=== PATIENT | female | born 1985 | race African-American/Black ===

== ENCOUNTER 2018-04-21 15:41 | Observation (INO) | payer MEDICAID, OTHER ==
[2018-04-21 16:22] VITALS: BMI 45.5
--- NOTE | 2018-04-21 16:29 | PDOC.LDHP ---
Labor and Delivery H&P Chief complaint: other (uncontrolled GDM) HPI: Ms. Marie is a 32YO @ 35.1 weeks with uncontrolled GDM who was sent over from clinic due to 2 consecutive elevated blood glucose readings. Patient states that her first blood glucose level was in the 200s and that her second check was ~154. Patient states that she does no check her BG regularly at home and that last time she did check it was about 2 weeks ago. She says she stopped checking them because they were consistently normal when they were checked at clinic. She does state that she is compliant with her home dose of metformin but does not like that it gives her diarrhea. Patient also states that her was elevated in clinic with a SBP of ~141. She says she has never had a high BP reading until today. Does endorse a RAYGOZA around her right eye and forehead that has been coming and going and is not relieved by tylenol. She denies any vision changes, SOB other that baseline with , chest pain, upper abdominal pain or swelling. Due date: 05/30/18 Dating criteria: second trimester ultrasound (consistent with 29.6 wk U/S) Grav: 4 Para: 3 ([id number]) Current complications: gestational diabetes Abnormal US findings: No Past Medical History: 1. Obesity 2. iron deficiency anemia Current medications: pre- vitamins Previous surgical history: low tranverse CS (c/s x 2 --> in 2004 & 2017), appendectomy Social history: none - Physical Exam General: NAD Heart: RRR Lungs: nonlabored breathing Abdomen: NTTP Extremeties: no edema - OB Labs Blood type: O RH: positive Antibody Screen: negative HIV: negative RPR: negative HEPSAg: negative GBS: unknown Urine drug screen: not done Rubella: immune Additional Labs: HgbA1c - 5.6 2 hour GTT: fasting --> 83 1/2 hour --> 160 1 hour --> 183 2 hours --> 97 - Assessment Patient is a 32YO w/ SIUP @ 35.1 weeks who was sent over from clinic due to highly elevated blood glucose levels and an elevated SBP. - Plan Plan: admit to L&D, observation in L&D -: 1. SIUP @ 35.1 wks complicated by A2GDM: - Will start on insulin regimen as monotherapy has not been sufficient for adequate control - Will monitor overnight to ensure BG levels are controlled - Will get a BPP, NST & growth U/S to evaluate status 2. Elevated BP w/o dx of HTN: - Will continue to monitor BP. 3. h/o tobacco use during - Will encourage cessation. <Yudith Salas - Last Filed: 04/21/18 16:42> <Shalini Manley - Last Filed: 04/21/18 18:34> Allergies/Adverse Reactions: Allergies Allergy/AdvReac Type Severity Reaction Status Date / Time No Known Allergies Allergy Verified 01/09/17 02:45 Attending Addendum - Attending Addendum Date/Time: 04/21/18 1822 I personally evaluated the patient and discussed the management with Dr. Salas I agree with the History, Examination, Assessment and Plan documented above with any addition or exceptions noted below- 32 year old @ 35.1 weeks with h/o A2GDM on metformin sent from clinic due to elevated BG and poor follow- up. Patient denies any complaints. (+) FM. States that she has not checked her BG in about 2 weeks but when she would check it her fastings were less than 95 but her post lunch and dinner glucoses were between 150 and 200. Has h/o GDM in her second treated with oral medications. Afebrile VSS. Exam repeated by me and agree with resident's findings. NST reactive. Accucheck=99; BPP 05/17. USG c/w dates; EFW 2596 g (46%). A/P: 1) IUP@ 35.1 weeks with A2GDM- will admit to and monitro BG; check pre and 2 hour post-prandial glucoses. Continue metformin and add insulin as required based on BG. Reassuring testing. <Shalini Manley - Last Filed: 04/21/18 18:34>
[2018-04-21] MEDS ORDERED: Ondansetron HCl/PF 4 MG/2 ML Vial IVP PRN (16:47)
[2018-04-21] MEDS ORDERED: Promethazine HCl 25 MG/ML VIAL IM PRN (16:47)
[2018-04-21] MEDS ORDERED: Docusate 100 MG CAP PO PRN (16:47)
--- NOTE | 2018-04-21 18:40 | ULT ---
OB ULTRASOUND AND BIOPHYSICAL PROFILE: 04/21/18 HISTORY: Maternal gestational diabetes. Multiple longitudinal and transverse images of an intrauterine is obtained using a multiher tz curvilinear transducer. Real time, color flow and M-mode sonography is used to evaluate the fetus. Images demonstrate the fetus to be in cephalic presentation. The placenta is anterior. Amniotic fluid index measures 10.3 cm. BIOMETRICS: Biparietal diameter = 86 mm = 34 weeks, 4 days Head circumference = 313 mm = 35 weeks, 1 day Abdominal circumference = 312 mm = 35 weeks, 1 day Femur length = 69 mm = 35 weeks, 2 days Composite age = 35 weeks, 6 days with an estimated deliver of 05/27/18. Estimated weight i s 2596 grams plus/minus 384 grams. Cardiac activity measures 149 beats per minute. BIOPHYSICAL PROFILE: tone = 2 breathing = 2 movement = 2 Amniotic fluid volume = 2 Composite equals 8 out of 8. IMPRESSION: Viable intrauterine and biophysical profile measuring 8 out of 8. POS: [facility]
[2018-04-21] MEDS ORDERED: Ondansetron ODT 4 MG TAB PO PRN (20:25)
[2018-04-21] MEDS ORDERED: HumaLOG 300 UNITS/3 ML VIAL SC PRN ×2 (20:25)
[2018-04-21] MEDS ORDERED: Dextrose 5% in Water 1,000 ML IV PRN (20:25)
[2018-04-21] MEDS ORDERED: Dextrose 50% Abboject 50 ML SYRINGE SLOW IVP PRN (20:25)
--- NOTE | 2018-04-22 08:17 | PDOC.FM ---
- Subjective Subjective: 32yo at 35.2 weeks with history of uncontrolled A2GDM. Has continued mild headache. Reports her diet in the hospital has been much healthier compared to her diet at home. Reports mostly eating fried chicken at home. ROS: no fevers or chills, no cp or palpitations, no sob or cough, polyuria, no dysuria - Objective MAR Reviewed: Yes Vital Signs & Weight: Weight Weight 109.316 kg Additional Labs: POC Glucose: 88 @ 0629 today <Christian Murray - Last Filed: 04/22/18 08:45> - Objective Vital Signs & Weight: Weight Weight 109.316 kg <Shalini Manley - Last Filed: 04/22/18 11:12> Phys Exam - Physical Examination Constitutional: NAD HEENT: moist MMs, sclera anicteric Respiratory: no wheezing, clear to auscultation bilateral Cardiovascular: RRR, no significant murmur Gastrointestinal: soft, non-tender Musculoskeletal: no edema Psychiatric: normal affect Skin: no rash, cap refill <2 seconds <Christian Murray - Last Filed: 04/22/18 08:45> Dx/Plan (1) GDM, class A2 Code(s): O24.414 - GESTATIONAL DIABETES IN , INSULIN CONTROLLED Status: Acute (2) Status: Acute - Plan Plan: SIUP @ 35.2 wks complicated by A2GDM: - blood sugars remain low despite holding metformin, pt has not needed insulin yet. Likely high BS was due to dietary choices at home. BPP was 8/8, weigh 2596g +/- 384. - will discharge with home metformin and dietary counseling. Elevated BP w/o dx of HTN: - Will continue to monitor BP. h/o tobacco use during - Will encourage cessation. <Christian Murray - Last Filed: 04/22/18 08:45> Attending Addendum - Attending Addendum Date/Time: 04/22/18 1102 I personally evaluated the patient and discussed the management with Dr. Murray I agree with the History, Examination, Assessment and Plan documented above with any addition or exceptions noted below- Patient without complaints. (+) FM. Afebrile VSS. A/P: 1) IUP@ 35.2 weeks with A2GDM- BG all within normal limits. Patient acknowledges that her diet has not been similar to current diet here at hospital. Will have insurance manager see patient. If BG remain stable, will consider d/c later today. Continue metformin for now. <Shalini Manley - Last Filed: 04/22/18 11:12>
[2018-04-22] MEDS: Acetaminophen 500 MG TAB PO PRN ×2 (09:03→21:39)
[2018-04-22] MEDS: metFORMIN 500 MG TAB PO SCH ×2 (09:03→19:27)
[2018-04-22] MEDS: Prenatal Vitamin 1 TAB PO SCH (09:03)
[2018-04-22] MEDS: Ferrous Sulfate 325 MG TAB PO SCH (09:04)
--- NOTE | 2018-04-23 07:14 | PDOC.FM ---
- Subjective Subjective: No complaints on exam this AM. Patient is ready for discharge. Denies any chest pain, SOB or upper abdominal pain. No nausea or vomiting. Tolerating food and liquids well PO. - Objective MAR Reviewed: Yes Vital Signs & Weight: Vital Signs (12 hours) Temp Pulse Resp BP BP Pulse Ox 04/22/18 21:30 98.6 F 76 28 H 108/56 L 108/54 L 99 Weight Weight 109.316 kg I&O: 04/22/18 04/23/18 04/24/18 06:59 06:59 06:59 Intake Total 750 Balance 750 <SalasYudith - Last Filed: 04/23/18 12:02> - Objective Vital Signs & Weight: Vital Signs (12 hours) Temp Pulse Resp BP 04/23/18 09:45 116/57 L 04/23/18 08:00 98.3 F 81 24 H Weight Weight 109.316 kg I&O: 04/22/18 04/23/18 04/24/18 06:59 06:59 06:59 Intake Total 750 Balance 750 <Shalini Manley - Last Filed: 04/23/18 19:32> Phys Exam - Physical Examination HEENT: PERRLA Respiratory: no wheezing, no rales, no rhonchi, clear to auscultation bilateral Cardiovascular: RRR, no significant murmur Gastrointestinal: soft, non-tender, no distention, positive bowel sounds Musculoskeletal: no edema Neurological: moves all 4 limbs Psychiatric: normal affect, A&O x 3 Skin: no rash <JosueYudith - Last Filed: 04/23/18 12:02> Dx/Plan (1) Status: Acute QualifierTitle: Weeks of gestation: 35 weeks Qualified Code(s): Z3A.35 - 35 weeks gestation of (2) GDM, class A2 Code(s): O24.414 - GESTATIONAL DIABETES IN , INSULIN CONTROLLED Status: Acute - Plan Plan: A&P: Assessment: 22YO @ 35.2 weeks w/ poorly controlled A2GDM. Plan: 1. SIUP complicated by poorly controlled A2GDM: - Almost all BG levels have been WNL since admission. - Glucose monitor checked by nurses and is working well so she will be able to use it at home. - Encouraged following a better diet, the importance of making all scheduled appointments, and checking blood glucose at home. Dietitian also counselled patient extensively yesterday regarding what diet to follow upon leaving the hospital. - Will continue on Metformin 1000mg BID following discharge. - Has a f/u appt scheduled wih Dr. Toscano at [facility] tomorrow on 04/24. 2. h/o tobacco use in - Will encourage cessation <Yudith Salas - Last Filed: 04/23/18 12:02> Attending Addendum - Attending Addendum Date/Time: 04/23/181928 I personally evaluated the patient and discussed the management with Dr. Salas I agree with the History, Examination, Assessment and Plan documented above with any addition or exceptions noted below- Patient without complaints. Afebrile VSS A/P: 1) IUP @35.3 weeks with A2GDM- BG within normal limits here in the hospital. Patients glucometer checked and appears accurate. Seen by cheese wrapper yesterday and oatient acknowledges that food choices at home have not been appropriate for GDM. Will d/c home today and keep follow-up as scheduled. Continue metformin. <Shalini Manley - Last Filed: 04/23/18 19:32>
[2018-04-23] MEDS: Prenatal Vitamin 1 TAB PO SCH (10:46)
[2018-04-23] MEDS: metFORMIN 500 MG TAB PO SCH (10:46)
[2018-04-23] MEDS: Ferrous Sulfate 325 MG TAB PO SCH (10:47)
[2018-04-23 11:10] VITALS: TEMP 98.3
[2018-04-23 11:11] VITALS: BP 116/57
--- NOTE | 2018-04-25 01:05 | DIS-2 ---
DATE OF ADMISSION: 04/21/2018 DATE OF DISCHARGE: 04/23/2018 RESIDENT: Yudith Salas MD ADMITTING ATTENDING: Shalini Manley MD DISCHARGE ATTENDING: Shalini Manley MD CONSULTATION: Case management was consulted in order to help the patient obtain glucose monitoring supplies. PROCEDURES: 1. A biophysical profile was significant for a score of 8/8, which is within the normal limits. 2. A nonstress test was performed and was within normal limits and reactive. 3. A growth ultrasound was also performed and was within normal limits. PRIMARY DIAGNOSES: 1. . 2. A2GDM. SECONDARY DIAGNOSIS: None. DISCHARGE MEDICATIONS: 1. vitamins 1 tablet p.o. daily. 2. Ferrous sulfate 325 mg p.o. daily. 3. Metformin 1000 mg p.o. b.i.d. DISCONTINUED MEDICATIONS: None. HISTORY OF PRESENT ILLNESS AND HOSPITAL COURSE: The patient is a 32-year-old -Vin[place] who was sent over for observation directly from clinic due to poorly controlled gestational diabetes. Per the patient, her blood glucose level was 154 at clinic prior to presentation. However, on presentation to L&D, her blood glucose was 99 and the patient was therefore admitted for observation in order to ensure compliance with blood glucose monitoring and GDM treatment. Her blood glucose was monitored for the duration of her stay and all measures were within normal limits except for one mildly elevated level of 120. For the duration of her stay, the patient was kept only on her p.o. dose of metformin. No insulin was initiated as all her blood glucose levels were well controlled and she was restricted to a consistent carb diet while in the hospital. The patient was counseled extensively by a dietitian regarding proper dietary practices for diabetics. Her glucometer was also checked by nursing staff and was found to be in proper working order. The patient was instructed on the importance of checking her blood glucose levels at home regularly. By date of discharge, the patient was stable and her blood glucose levels, as previously mentioned, were within the normal range, so she was cleared for discharge home nd instructed to follow up with her primary care physician the following Tuesday. DISPOSITION: Stable. DISCHARGE INSTRUCTIONS: 1. Location: Home. 2. Diet: Diabetic or consistent carb diet. 3. Activity: As tolerated. No restrictions. 4. The patient was instructed to follow up with her primary care physician, Dr. Salvatore Toscano, on 04/24/2018. MTDD
== END 2018-04-23 12:42 | disposition home or self-care (01) ==
LOC: L&D/OP 15:41 → INTOOBSV 19:29 → 3SW 19:29 → 3SE 21:04
PROVIDERS: ADMIT Family Medicine; ATTEND Family Medicine
DX: O24.414 Gestational diabetes mellitus in pregnancy, insulin controlled (principal); Z79.84 Long term (current) use of oral hypoglycemic drugs; Z79.899 Other long term (current) drug therapy; Z87.891 Personal history of nicotine dependence; Z3A.35 35 weeks gestation of pregnancy
CPT/HCPCS: 36416; 59025; 76805; 76819; G0378

== ENCOUNTER → 2018-05-20 15:45 | Inpatient (IN) | payer OTHER ==
[2018-05-18 06:28] VITALS: BMI 41.5
--- NOTE | 2018-05-18 07:07 | PDOC.FPROB ---
FMR OB H&P: HPI - History of Present Illness Chief Complaint: scheduled c/s History of Present Illness: 32 yo AA at 39.0 wk by LMP/17.5 wk US. complicated by GDM A2 with moderate control with metformin and diet. She was frequently non-compliant with medication regimen and home monitoring. C/S indicated for prior x2. Plan for RRS during procedure. Patient has been counseled extensively prior to procedure. RRS was approved by Ethics committee. Primary Care Physician: Dorcas FMR OB H&P: Current - Care : 3 Para: 2001 Gestational age: 39.0 Due date: 05/25/18 Dating Criteria: LMP/17.5 wk US Course/Complications: GDM A2 - OB Labs Blood type: O RH: positive Antibody Screen: negative HIV: negative RPR: negative HepBsAg: negative Rubella: immune Quad screen: unknown Urine drug screen: not done Gonorrhea: negative Chlamydia: negative Pap Smear: negative 1 hour gtt: positive 2 hr GTT 85, 160, 183, 97 GBS: positive H&H: 11.0/32.7 Platelets: 221 - First Trimester Ultrasound First trimester: Not performed - Anatomy Survey Anatomy survey: Not performed. 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[employer] HEL[employer] History: unremarkable - Surgical History Sx History: C/S x2 with extensive adhesions during last c/s - Social History Social History: Tobacco use during - Family History Family History: non-contributory FMR OB H&P: Medications - Current Home Medications: Medication Instructions Recorded Confirmed Type Pnv95/Iron Fum/Folic Acid 1 each PO DAILY 11/22/16 05/18/18 History [ [place]] metFORMIN [Glucophage] 1,000 mg PO BID-WM 04/21/18 05/18/18 History Allergies/Adverse Reactions: Allergies Allergy/AdvReac Type Severity Reaction Status Date / Time No Known Allergies Allergy Verified 05/18/18 06:26 FMR OB H&P: ROS - Review of Systems General: denies: fever/chills, weight/appetite/sleep changes Eyes: denies: eye pain, vision changes ENT: denies: nasal congestion, ear pain, trouble with swallowing Cardiovascular: denies: chest pain, orthopnea Respiratory: denies: cough, congestion Gastrointestinal: denies: abdominal pain, indigestion Genitourinary (Female): denies: incontinence, dysuria, vaginal pain Musculoskeletal: denies: pain, stiffness Neurologic: denies: numbness, syncope Integumentary: denies: itching, rash Endocrine: denies: cold intolerance, heat intolerance Hematologic/Lymphatic: denies: prolonged or excessive bleeding, enlarged lymph nodes Psychological: denies: depression, anxiety FMR OB H&P: Vital Signs - Maternal Vital signs: Vital Signs - First Documented Temp Pulse Resp BP 98.1 F 97 18 120/69 05/18/18 05:41 05/18/18 05:41 05/18/18 05:41 05/18/18 05:41 - Heart Tones Baseline: 140 Variability: moderate Acceleration: present Deceleration: absent Peabody contractions every: none FMR OB H&P: Physical Exam - Physical Exam General: NAD, awake, alert and oriented HEENT: normocephalic and atraumatic, MMM, no scleral icterus Heart: RRR, normal S1/S2, no murmurs/rubs/gallops General: CTAB, no respiratory distress, no wheezing Abdomen: soft, gravid, non-tender, bowel sound present Musculoskeletal: normal gait and station, pulses present, FROM in all four extremities Neurological: cranial nerves II through XII intact, sensation to pain,touch and proprioception grossly normal Skin: no rash, good tugor Lymphatic: no unusual bruising or bleeding Psychiatric: intact recent and remote memory, good judgement and insight - Pelvic Exam SVE: deferred Estimated Weight: 8 lbs FMR OB H&P: Results - Labs Lab results: Laboratory Results - last 24 hr 05/18/18 06:41 POC Glucose 134 H Laboratory Results - last 24 hr 05/18/18 05/18/18 06:40 06:41 WBC 11.6 H RBC 4.30 Hgb 11.6 L Hct 32.9 L MCV 76.7 L MCH 26.9 L MCHC 35.1 RDW 13.1 Plt Count 179 MPV 7.8 POC Glucose 134 H - Imaging Imaging: POC US reveals anterior fundal placenta FMR OB H&P: A/P - Problem List (1) Current Visit: No Status: Acute Qualifiers: Weeks of gestation: 39 weeks Qualified Code(s): Z3A.39 - 39 weeks gestation of Assessment and Plan: 32 yo @ 39.0 wk. - Routine labs - Plan for repeat c/s with RRS today. RRS to be performed by Dr. Atkinson - expectant management. (2) Previous section Current Visit: Yes Status: Acute Code(s): Z98.891 - HISTORY OF UTERINE SCAR FROM PREVIOUS SURGERY (3) GDM, class A2 Current Visit: No Status: Acute Code(s): O24.414 - GESTATIONAL DIABETES IN , INSULIN CONTROLLED Comment: will monitor closely during post course since moderate control during . Discussion: Date/Time: 05/18/18 0701 This H&P was discussed with Dr. Amaro who agree with the above documentation and plan. Attending Addendum - Attending Addendum Date/Time: 05/18/18 1311 I personally evaluated the patient and discussed the management with Dr. Toscano. I agree with the History, Examination, Assessment and Plan documented above with any addition or exceptions noted below. Plan to consult Laborist for RRS.
[2018-05-18 07:08] LABS: Hemoglobin 11.6 g/dL (12.0-16.0); Mean Corpuscular HGB CONC 35.1 g/dL (32.0-36.0); Mean Corpuscular Hemoglobin 26.9 pg (27.0-31.0); Mean Corpuscular Volume 76.7 fL (78.0-98.0); Mean Platelet Volume 7.8 fL (7.4-10.4); Platelet Count 179 thou/uL (130-400); RBC Distribution Width 13.1 % (11.5-14.5); White Blood Cell (WBC) Count 11.6 thou/uL (4.8-10.8)
[2018-05-18 07:47] LABS: HBSAg Index 0.18 S/CO (0-0.99); Hep B Surf Ag Non-Reactive S/CO (NonReactive); Syphilis Antibody Nonreactive (Nonreactive); Syphilis Antibody Index 0.05 S/CO (<1.00 Non-Reactive)
--- NOTE | 2018-05-18 08:56 | PDOC.EVN ---
Event Note - Event Note Event Note: Rigoberto on-call: @ 9084: I was just notified by the on-call team that Ms Marie is here under their service for repeat CS at 39 weeks. She has A2DM, onmetformin. I was consulted for bilateral salpingectomy (prophylactic) which has been approved by the [facility]. I have reviewed the case with Dr Toscano. They will call me for intraoperative consult to perform/assist with the salpingectomies after hysterotomy has been repaired. This is assuming the tubes are accessible and not obstructed by pelvic adhesions.
--- NOTE | 2018-05-18 11:16 | OP ---
DATE OF PROCEDURE: 05/18/2018 TIME OF INTRAOPERATIVE CONSULT: 10:25 (scrubbed in and at bedside) until 10:35 (scrubbed out and jevon e turned over to the primary surgery team). REASON FOR CONSULT: Bilateral salpingectomy (risk reducing) desired and approved. PREOPERATIVE DIAGNOSIS: 1. Prior section for elective repeat at term. 2. Gestational diabetes, on metformin. 3. Desires risk reduction salpingectomy. PROCEDURE: 1. Left distal salpingectomy. 2. Right salpingectomy from the mid segment down to the fimbria. SURGEON: Bryce Atkinson M.D. INSPECTOR HEALTH CARE FACILITIES: Dr. Salvatore Toscano INSPECTOR HEALTH CARE FACILITIES #2: Dr. Yudith Salas with the [facility]. TOTAL TIME OF INTRAOPERATIVE SURGERY DURING CONSULTATION: 10 minutes. COMPLICATIONS: None. ESTIMATED BLOOD LOSS: For the salpingectomy is negligible. DESCRIPTION OF PROCEDURE: I was called in to the OR in Labor and Delivery at approximately 10:20 as the hysterotomy was being closed. At this time, I walked into the room to find the primary surgeons (Family Medicine Program) exteriorizing the uterus. Small omental adhesions were noted on the patien t's left to the uterine fundus. No bowel was involved with this. Both tubes were accessible visuall y. I scrubbed in at 10:25 and was at bedside. Shawn Mckeon, our [employer] medical student, was also s crubbed in and at bedside next to me. Attention was first turned towards the patient's left where th e filmy omental adhesions were taken down with Bovie cautery on cut mode. Hemostasis was assured. D ue to limited free space in the proximal left tube, a free window of mesosalpinx was identified and e ntered with Bovie cautery on cut mode at the ampullary region. Two hemostats were then placed throug h this window through the mesosalpinx and under the fimbria in order to provide a left distal salping ectomy. Two ties of #1 chromic were used to suture ligate each pedicle after the tube was transected . Hemostasis was assured. Attention was then turned towards the patient's right side where the meso salpinx was identified and again the mesosalpinx was perforated with Bovie cautery on cut mode as the tube was elevated upwards away from the uterus with a Eureka clamp. Two Mira clamps were then gonzalo fei through this window for mid segmental to fimbrial extraction. It was at this time that we noted some dense adhesions of the fimbria to the ovarian cortex. This was freed using Bovie cautery on cut mode. Hemostasis was assured both at the tubal site as well as the ovarian side. It is important t o note that this was a superficial dissection without getting into the ovarian structure. We then pl aced 2 Mira clamps through the mesosalpinx window and performed the salpingectomy. Two ties of #1 c hromic were then used to render the pedicles hemostatic. After confirming hemostasis at both salping ectomy sites, I returned the remainder of the surgery over to the primary surgical team. PROCEDURE PERFORMED: Left distal salpingectomy and a salpingectomy on the right from the mid segment of the tube down to the level of the fimbria. Both fimbria's were removed during this procedure. No complications were noted. The patient seemed to tolerate the procedure well. I scrubbed out of t case at 10:35.
--- NOTE | 2018-05-18 14:04 | PDOC.EVN ---
Event Note - Event Note Event Note: OPERATIVE REPORT PREOPERATIVE DIAGNOSIS: Term IUP, 2 Prior C/S, GDM A2, Obesity, Family Hx Ovarian Cancer, Requests Risk Reducing Salpingectomy POSTOPERATIVE DIAGNOSIS: Same, plus extensive fascial adhesions PROCEDURE: Repeat Low Transverse Section Extensive lysis of adhesions Bilateral Risk-Reducing Salpingectomy ATTENDING / PRIMARY SURGEON: Benny Amrao MD RESIDENT SURGEON: Salvatore Toscano MD SECOND ASSIST: Yudith Salas MD PROCTORING: Leda Plasencia MD LABORIST CONSULT: Bryce Atkinson MD, (for RRS) ANESTHESIA: Spinal QBL: 1260 cc CLINICAL SYNOPSIS: The patient is a 32 y/o female now 3 at 39 weeks EGA admitted repeat at term as well as risk-reducing salpingectomy. course had been complicated by insufficient care, GDM A2, and obesity. Please refer to Dr. Toscano H&P for complete details. The procedure was discussed in detail with the patient and R/B/A reviewed at length. Given the patients strong family history of ovarian cancer, arrangements were made to have our laborist, Dr. Bryce Atkinson, attend to perform risk-reducing salpingectomy. The patient provided informed consent. PROCEDURE NOTE: After properly identifying the patient, she was taken to the OR and placed on the operating table in the sitting position. A spinal anesthetic was then administered. The patient was then placed in the supine position with a slight left lateral tilt. Ancef was administered for antibiotic prophylaxis. A Bernal catheter was inserted. heart tones were reassuring. A surgical time-out was taken per protocol. The patients abdomen was prepped and draped in the usual fashion for section. Check was made to ensure adequate anesthesia before proceeding further. Silk tape was used to elevate the pannus above the incision site. A scalpel was used to create a pfannenstiel incision through the skin over her previous incision site and subcutaneous tissue. The abdominal fascia was nicked on both sides of the midline. Bradley scissors were used to extend the fascial incision bilaterally. The fascia was dissected off the anterior surface of the rectus muscles superiorly and inferiorly with a combination of blunt and sharp dissection, thick adhesions were noted. The rectus muscles were divided high in the midline and the peritoneum identified. The peritoneum was entered using Metzenbaum scissors. Adhesions were encountered from the peritoneum to the anterior surface of the uterus. The peritoneal opening was extended cephalad and caudal using manual traction. A bladder blade was placed. Attempts at creating a bladder flap were abandoned due to dense adhesions. A scalpel was used to create a small transverse incision in the lower uterine segment. Clear amniotic fluid was encountered as well as the margin of the placenta. The uterine incision was extended bilaterally using the operators fingers and digital traction. The vertex was left occiput transverse. The infants head was elevated through the hysterotomy. There was a single loose loop of umbilical cord which was easily reduced. The rest of the infant delivered easily. Following delivery, the infants nasopharynx and hypopharynx were suctioned with a bulb syringe. The umbilical cord was clamped and divided. the was handed to waiting attendants. The healthy male infant with APGARS of 9/9 at one and five minutes respectively. Cord blood sample was obtained and forwarded to the laboratory. Gentle traction was applied to the cord. The placental delivered spontaneously and intact shortly thereafter. The placenta appeared to be grossly normal, the cord was tri-vessel. The uterus was then partially exteriorized with difficulty due to adhesions and secured with a wet lap sponge. The uterine cavity was curetted with a dry lap sponge. The angles of the uterine incision were identified and grasped with ring forceps. The uterine incision was repaired in two layers with 1 - Vicryl suture material. The first layer was a running interlocking stitch, the second layer was imbricating. Uterine tone and hemostasis were both excellent. Clots were cleared from the pouch of Johnathan. The gutters were clear. Dr. Bryce Atkinson, the laborist, was consulted to perform a bilateral risk- reducing salpingectomy. Please refer to his separate not for details. The uterus was replaced back into the pelvis. The anterior surface of the uterus was abraded, friable and oozing. A combination of short running suteres and vblnmf-mh-glgeb stitches were employed for hemostasis. Ultimately Surgicel and FloSeal were utilized for adjuntive treatment of the oozing. The uterine incision was inspected once again and noted to be hemostatic. The area was inspected for a considerable period to ensure hemostasis. The abdominal fascia was closed using 0 - Vicryl suture material with a running stitch. Integrity of the fascia was confirmed. The subcutaneous tissue was irrigated with warm saline. Several oozing points were cauterized. The subcutaneous tissue was reapproximated with running 3-0 chromic. The skin was closed with 3 0 Monocryl with running subcuticular suture. Cosmetic results and hemostasis were both excellent. Dermabond and a sterile dressing were then applied. At the conclusion of the procedure, sponge, instrument and needle counts were all correct. The Bernal catheter was draining clear urine. The patient was transported to the PACU in good condition. BENNY AMARO MD
--- NOTE | 2018-05-18 14:39 | PDOC.PP ---
Addendum entered and electronically signed by Yudith Salas MD 05/18/18 14:51 : 3. anemia in : Of note, AM hemagram ordered. Original Note: Post Progress Note Post Day #: 0 Subjective: Patient states she and baby are doing well. Says her pain is currently a 7/10 in severity, especially around her incision. Has been unable to get up yet 2/2 anesthesia still having some effect. Denies any nausea, chest pain, SOB or headache. Desires to breast feed. Is open to meeting with computer systems consultant. PO intake tolerated: no (has not ordered any food yet) Ambulation: no Vital Signs (12 hours) Temp Pulse Resp BP 05/18/18 06:44 98.1 F 97 18 05/18/18 05:41 98.1 F 97 18 120/69 Weight Weight 113.398 kg - Physical Examination General: NAD Cardiovascular: no m/r/g, RRR Respiratory: clear to auscultation bilaterally, non-labored breathing Abdominal: + bowel sounds, lochia, no distention, appropriately TTP Extremities: negative homans (B) Deviation from normal: Incision covered with pressure dressing. Did not attempt to remove this. Neurological: no gross focal deficits Psychiatric: A&Ox3, normal affect Result Diagrams: 05/18/18 06:40 Additional Labs: Post Labs Blood Type O POSITIVE 05/18/18 06:40 Hep Bs Antigen Non-Reactive S/CO (NonReactive) 05/18/18 06:40 (1) delivery due to maternal disorder, delivered, curr hospitaliz Code(s): O99.89 - OTH DISEASES AND CONDITIONS COMPL PREG/CHLDBRTH Status: Acute Comment: She is progressing well except for problems noted under hemmorrage. Will continue routine care otherwise. DC today (2) GDM, class A2 Code(s): O24.414 - GESTATIONAL DIABETES IN , INSULIN CONTROLLED Status: Acute Comment: will monitor closely during post course since moderate control during . - Assessment/Plan 32YO AA at 39.0 wks by LMP/17.5 wk sono who is day #0 s/p repeat C/S x 3 w/ risk-reducing salpingectomy. 1. day #0 s/p repeat C/S x 3 w/ RRS: - Will continue routine care. - Will encourage ambulation once anesthesia has completely worn off. - Will advance diet as tolerated. - Will continue docusate PRN for constipation. - Will closely monitor wound healing as patient has multiple risk factors for dehiscense, most notably, obesity & GDM. - Patient desires breast feeding. consult ordered. - Patient has Ibuprofen RICHELLE and Makaweli & toradol PRN for pain. 2. Poorly controlled GDM A2: - Will check BG levels ACHS. - Will order Carb consistent diet. 3. Anemia in : - H/H 11.6/32.9 on admission. QBL was ~1200mL. - Will continue PNVs and start on ferrous sulfate BID. 4. Obesity - Will certified alcohol and drug counselor patient on importance of regular exercise and following a healthy diet.
[2018-05-18] MEDS: Ketorolac Tromethamine 30 MG/ML VIAL IVP PRN (14:54)
[2018-05-18] MEDS: Ferrous Sulfate 325 MG TAB PO SCH (17:04)
[2018-05-19] MEDS: Docusate Calcium (SURFAK) 240 MG CAP PO SCH ×3 (02:42→21:33)
[2018-05-19] MEDS: Ketorolac Tromethamine 30 MG/ML VIAL IVP PRN (05:32)
[2018-05-19 06:04] LABS: Hemoglobin 8.4 g/dL (12.0-16.0); Mean Corpuscular HGB CONC 33.9 g/dL (32.0-36.0); Mean Corpuscular Hemoglobin 26.2 pg (27.0-31.0); Mean Corpuscular Volume 77.3 fL (78.0-98.0); Mean Platelet Volume 8.4 fL (7.4-10.4); Platelet Count 152 thou/uL (130-400); RBC Distribution Width 13.2 % (11.5-14.5); Red Blood Cell (RBC) Count 3.21 mill/uL (4.20-5.40); White Blood Cell (WBC) Count 14.2 thou/uL (4.8-10.8)
--- NOTE | 2018-05-19 07:19 | PDOC.PP ---
Post Progress Note Post Day #: 1 Subjective: pain controlled. breast feeding well. no concerns. PO intake tolerated: yes Flatus: yes Ambulation: yes Vital Signs (12 hours) Temp Pulse Resp BP Pulse Ox 05/19/18 05:00 97.8 F 63 20 90/53 L 05/19/18 02:00 20 05/19/18 00:00 97.9 F 71 18 104/51 L 05/18/18 22:00 18 05/18/18 20:00 97.8 F 73 20 100/53 L 98 Weight Weight 113.398 kg - Physical Examination General: NAD Cardiovascular: no m/r/g, RRR Respiratory: clear to auscultation bilaterally, non-labored breathing Abdominal: + bowel sounds, lochia, no distention, appropriately TTP Fundus firm & at: 1 cm below umbilicus Skin: CS incision dry & intact, no rash Neurological: no gross focal deficits Psychiatric: A&Ox3 Result Diagrams: 05/19/18 05:30 Additional Labs: Post Labs Blood Type O POSITIVE 05/18/18 06:40 Hep Bs Antigen Non-Reactive S/CO (NonReactive) 05/18/18 06:40 (1) Status: Acute Qualifiers: Weeks of gestation: 39 weeks Qualified Code(s): Z3A.39 - 39 weeks gestation of (2) Previous section Code(s): Z98.891 - HISTORY OF UTERINE SCAR FROM PREVIOUS SURGERY Status: Acute (3) GDM, class A2 Code(s): O24.414 - GESTATIONAL DIABETES IN , INSULIN CONTROLLED Status: Acute - Assessment/Plan 1. rLTCS w/ RRS: pain controlled. D/C toradol and schedule ibuprofen. norco available PNR. H&H appropriate drop but will require iron. Start bowel regimen as well. Expectant management at this time. encourage breast feeding. 2. GDM A2: currently off metformin and moderately controlled. will monitor overnight. if fasting and premeal levels remain elevated, will restart metformin. 3. Late to care: case management work with patient to determine needs for time of d/c \ DISPO: anticipate d/c tomorrow. <Salvatore Toscano W - Last Filed: 05/19/18 13:02> Vital Signs (12 hours) Temp Pulse Resp BP 05/19/18 08:54 97.9 F 78 18 114/58 L 05/19/18 07:30 97.9 F 78 18 05/19/18 06:00 20 05/19/18 05:00 97.8 F 63 20 90/53 L 05/19/18 02:00 20 Weight Weight 113.398 kg Result Diagrams: 05/19/18 05:30 Additional Labs: Post Labs Blood Type O POSITIVE 05/18/18 06:40 Hep Bs Antigen Non-Reactive S/CO (NonReactive) 05/18/18 06:40 <Leda Plasencia - Last Filed: 05/19/18 13:11> Attending Addendum - Attending Addendum Date/Time: 05/19/18 1307 I personally evaluated the patient at 0930 and discussed the management with Dr. Toscano. I agree with the History, Examination, Assessment and Plan documented above with any addition or exceptions noted below. pod #1 s/p Repeat LTCS with RRS- overall doing well. Ambulating and passing flatus. She did have some urinary retention after removal of benz- will watch this throughout the day. Pain controlled. Abdomen is soft and appropriately tender. Minimal lochia Anemia, iron def secondary to acute blood loss- patient asymptomatic and vitals stable. Start iron and bowel regimen. Continue routine post-op care. <Leda Plasencia - Last Filed: 05/19/18 13:11>
[2018-05-19] MEDS: Naloxone HCl 0.4 mg/ml Vial IV PRN ×3 (07:27→08:19)
[2018-05-19] MEDS: HYDROcodone/Acetaminophen 5/325 mg Tablet PO PRN ×3 (07:39→21:34)
[2018-05-19] MEDS: Ferrous Sulfate 325 MG TAB PO SCH ×2 (08:18→17:57)
[2018-05-19] MEDS: Prenatal Vitamin 1 TAB PO SCH (08:19)
[2018-05-19] MEDS: Ibuprofen 800 MG TAB PO SCH ×2 (14:36→21:33)
[2018-05-20] MEDS: Ibuprofen 800 MG TAB PO SCH ×2 (06:16→14:23)
[2018-05-20] MEDS: HYDROcodone/Acetaminophen 5/325 mg Tablet PO PRN ×2 (08:16→14:26)
[2018-05-20 09:18] VITALS: BP 127/68; TEMP 98.2
--- NOTE | 2018-05-20 09:37 | PDOC.PP ---
Post Progress Note Post Day #: Post op day # 2 Subjective: 32 yr old G4 now P4004 delivered via rLTCS at 39 wks Patient states she is doing well. Bleeding is minimal. BM yesterday. Urinating okay. Pain well controlled. No dizziness. Ambulating well. PO intake tolerated: yes Flatus: yes Ambulation: yes Vital Signs (12 hours) Temp Pulse Resp BP BP 05/20/18 08:00 98.2 F 68 18 127/68 05/20/18 00:00 98.1 F 94 18 109/50 L Weight Weight 113.398 kg - Physical Examination General: NAD Cardiovascular: no m/r/g, RRR Respiratory: clear to auscultation bilaterally Abdominal: lochia (decreased), no distention, appropriately TTP Fundus firm & at: below umbilicus Extremities: negative homans (B) Skin: CS incision dry & intact Neurological: no gross focal deficits Psychiatric: A&Ox3 Result Diagrams: 05/19/18 05:30 Additional Labs: Post Labs Blood Type O POSITIVE 05/18/18 06:40 Hep Bs Antigen Non-Reactive S/CO (NonReactive) 05/18/18 06:40 (1) delivery due to maternal disorder, delivered, curr hospitaliz Code(s): O99.89 - OTH DISEASES AND CONDITIONS COMPL PREG/CHLDBRTH Status: Acute Comment: She is progressing well except for problems noted under hemmorrage. Will continue routine care otherwise. DC today (2) Acute blood loss as cause of postoperative anemia Code(s): D62 - ACUTE POSTHEMORRHAGIC ANEMIA Status: Acute (3) GDM, class A2 Code(s): O24.414 - GESTATIONAL DIABETES IN , INSULIN CONTROLLED Status: Acute - Assessment/Plan 32 yr old G4 now P4004 delivered via rLTCS at 39 wks 1. TIUP s/p rLTCS -doing well -home today -norco/motrin for pain -f/u in [address] Toscano -no marianne on incision- looks good 2. A2 GDM -recommend 6 week 2 hours GTT 3. anemia 2/2 blood loss -ferrous sulfate BID 4. late to care <Candi Eli - Last Filed: 05/20/18 12:26> Weight Weight 113.398 kg Result Diagrams: 05/19/18 05:30 Additional Labs: Post Labs Blood Type O POSITIVE 05/18/18 06:40 Hep Bs Antigen Non-Reactive S/CO (NonReactive) 05/18/18 06:40 <Mily Farrell - Last Filed: 05/21/18 09:08> Attending Addendum - Attending Addendum Date/Time: 05/21/1807 I personally evaluated the patient and discussed the management with Dr. Eli I agree with the History, Examination, Assessment and Plan documented above with any addition or exceptions noted below. Stable POD # 2 s/p RLTCS with risk reducing salpingectomy. Pt ambulating without dizziness. Pain well controlled. Incision clean/dry/intact without surrounding erythema or drainage. Stable for d/c to home today. <Mily Farrell - Last Filed: 05/21/18 09:08>
[2018-05-20] MEDS: Ferrous Sulfate 325 MG TAB PO SCH (09:48)
[2018-05-20] MEDS: Docusate Calcium (SURFAK) 240 MG CAP PO SCH (09:48)
[2018-05-20] MEDS: Prenatal Vitamin 1 TAB PO SCH (09:48)
[~2018-05-20 15:45] MED LIST: Acetaminophen 500 MG TAB PO PRN; Adacel (T-DAP) 0.5 ML VIAL IM ONE; Bicitra 30 ML UDCUP PO SCH; Bupivacaine 0.75% W/DEXTROSE 8.25% 2 ML AMP ONE; CEFAZOLIN/Water 2 GM/20 ML SYRINGE SLOW IVP SCH; Communication Order-Pharmacy FS SCH; Dexamethasone 20 MG/5 ML VIAL ONE; Dexamethasone 4 mg/ml Vial ONE; Docusate 100 MG CAP PO PRN; Eucerin (Mineral Oil/Petrolatum,White) 30 gm Jar TOP PRN; HYDROcodone/Acetaminophen 5/325 mg Tablet PO PRN; HYDROmorphone 2 MG/ML VIAL SLOW IVP PRN; Ketorolac Tromethamine 30 MG/ML VIAL IVP PRN; Ketorolac Tromethamine 30 MG/ML VIAL IVP SCH; Ketorolac Tromethamine 30 MG/ML VIAL ONE; Lactated Ringer's 1,000 ML IV SCH; Lanolin Ointment 7 GM TUBE TOP PRN; Lidocaine 1% (PF) 30 ML VIAL ONE; Meperidine HCl/PF 25 MG/ML VIAL ONE; Meperidine HCl/PF 25 MG/ML VIAL SLOW IVP PRN; Methylergonovine 0.2 MG/ML VIAL IM PRN; Misoprostol 200 MCG TAB PR PRN; Morphine PF 1 MG/ML SYR ONE; NS / Oxytocin 40 units/1000ml 1,000 ML IV SCH; Naloxone HCl 0.4 mg/ml Vial IV PRN; Naloxone HCl 0.4 mg/ml Vial IVP PRN; Ondansetron HCl/PF 4 MG/2 ML Vial IVP PRN; Ondansetron HCl/PF 4 MG/2 ML Vial ONE; Oxytocin 10 UNITS/ML VIAL ONE; PHENYLEPHRINE-NS 100 MCG/ML 10 ML SYRINGE ONE; Promethazine HCl 25 MG SUPP PR PRN; Promethazine HCl 25 MG/ML VIAL IM PRN; Simethicone Chewable 80 MG TAB PO PRN; Sodium Chloride 0.9% 10 ML ONE; diphenhydrAMINE 50 MG/ML VIAL IVP PRN; diphenhydrAMINE 50 MG/ML VIAL ONE; ePHEDrine/0.9% NaCl/PF SYRINGE 50 mg/10 ml ONE
== END | disposition home or self-care (01) | DRG 765 ==
LOC: L&D 05-18 05:38 → 3SW 05-18 14:24
PROVIDERS: ADMIT Family Medicine; ATTEND Family Medicine
PROC: 10D00Z1 Extraction of Products of Conception, Low, Open Approach (ICD-10-PCS; principal; 2018-05-18)
PROC: 0UT70ZZ Resection of Bilateral Fallopian Tubes, Open Approach (ICD-10-PCS; 2018-05-18)
PROC: 0DNW0ZZ Release Peritoneum, Open Approach (ICD-10-PCS; 2018-05-18)
DX: O34.211 Maternal care for low transverse scar from previous cesarean delivery (principal); Z68.41 Body mass index [BMI] 40.0-44.9, adult; D62 Acute posthemorrhagic anemia; O24.425 Gestational diabetes mellitus in childbirth, controlled by oral hypoglycemic drugs; O99.214 Obesity complicating childbirth; E66.9 Obesity, unspecified; O99.89 Other specified diseases and conditions complicating pregnancy, childbirth and the puerperium; N73.6 Female pelvic peritoneal adhesions (postinfective); Z91.14 Patient's other noncompliance with medication regimen; Z80.41 Family history of malignant neoplasm of ovary; Z3A.39 39 weeks gestation of pregnancy; Z37.0 Single live birth; O90.81 Anemia of the puerperium
CPT/HCPCS: 36415; 36416; 51702; 76815; 85027; 86780; 86850; 86900; 86901; 87340; 88305; 88307; A4216; J1100; J1200; J1885; J2001; J2175; J2274; J2310; J2405; J2590; J3490